=== PATIENT | female | born 1950 | race Caucasian/White ===

== ENCOUNTER → 2017-01-25 | Outpatient (CLI) | payer MEDICARE, OTHER | LOC: MC.RAD 08:44 | DX: Z12.31 Encounter for screening mammogram for malignant neoplasm of breast (principal) ==

== ENCOUNTER → 2018-01-27 | Outpatient (CLI) | payer MEDICARE, OTHER | LOC: MC.RAD 10:22 | DX: Z12.31 Encounter for screening mammogram for malignant neoplasm of breast (principal) ==

== ENCOUNTER → 2019-01-29 | Outpatient (CLI) | payer MEDICARE, OTHER | LOC: MC.RAD 08:44 | DX: Z12.31 Encounter for screening mammogram for malignant neoplasm of breast (principal); Z98.82 Breast implant status ==

== ENCOUNTER → 2020-02-01 | Outpatient (CLI) | payer MEDICARE, OTHER | LOC: MC.RAD 09:12 | DX: Z12.31 Encounter for screening mammogram for malignant neoplasm of breast (principal) ==

== ENCOUNTER → 2021-02-02 | Outpatient (CLI) | payer MEDICARE, OTHER | LOC: MC.RAD 09:42 | DX: Z12.31 Encounter for screening mammogram for malignant neoplasm of breast (principal); Z98.82 Breast implant status ==

== ENCOUNTER → 2022-02-05 | Outpatient (CLI) | payer MEDICARE, OTHER | LOC: MC.RAD 09:42 | DX: Z12.31 Encounter for screening mammogram for malignant neoplasm of breast (principal) ==

== ENCOUNTER → 2024-02-11 | Outpatient (CLI) | payer MEDICARE, OTHER ==
[2004-12-15 09:46] VITALS: TEMP 97.9
== END ==
LOC: MC.RAD 09:04
DX: Z12.31 Encounter for screening mammogram for malignant neoplasm of breast (principal)